=== PATIENT | male | born 1985 | race Caucasian/White ===

== ENCOUNTER 2024-06-14 12:00 | Emergency (ER) | payer SELFPAY ==
[2024-06-14 12:04] VITALS: BP 135/73; PULSE 71; RESP 20; TEMP 36.3; O2SAT 97; BMI 30.3
--- NOTE | 2024-06-14 14:48 | W.ED.HA ---
HPI - Headache General: Chief Complaint: Headache Stated Complaint: Migraine Time Seen by Provider: 06/14/24 14:34 History of Present Illness: 39-year-old male patient comes in today with headache. Patient has history of cluster headaches. Patient reports headache started last night and they had tried a dose of verapamil and canned oxygen. Patient reports that the oxygen was not effective or the verapamil. Patient usually states the headache just goes away on its own but he has had increasing pain and discomfort which prompted him to come to the ER. Erythema is noted to the left eye with drainage. Patient appears in moderate to severe pain. Related Data Allergies Allergy/AdvReac Type Severity Reaction Status Date / Time meperidine [From Demerol] Allergy Unconscious Verified 06/14/24 12:09 Review of Systems General: Reports: 10 or more systems reviewed and unremarkable except in HPI and below Neuro: Reports: headache(s) Physical Exam Const: COMMON NORMALS: alert HENMT: COMMON NORMALS: normocephalic HEAD & SCALP: normocephalic Neck/C-Spine: COMMON NORMALS: full ROM Resp: COMMON NORMALS: normal respiratory effort and clear to auscultation bilaterally AUSCULTATION: clear to auscultation bilaterally Cardio: COMMON NORMALS: regular rate RATE: regular rate GI: COMMON NORMALS: Soft to palpation and non-tender PALPATION: Yes Soft to palpation Back/Pelvis: COMMON NORMALS: thoracic and lumbar spine normal to inspection Extremity: COMMON NORMALS: full ROM Neuro: SENSORIUM/ORIENTATION: Yes alert Skin: COMMON NORMALS: turgor normal GENERAL SKIN EXAM: turgor normal Course Vital Signs: Vital signs: Vital Signs Temperature 97.4 F L 06/14/24 12:04 Pulse Rate 75 06/14/24 15:12 Respiratory Rate 20 H 06/14/24 12:04 Blood Pressure 129/74 06/14/24 15:12 Pulse Oximetry 96 06/14/24 15:12 Oxygen Delivery Me thod Room Air 06/14/24 15:12 Oxygen Flow Rate 15 06/14/24 14:51 MDM - Headache Medical Decision Making 39-year-old male patient comes in with headache since last night. On exam patient appears in moderate to severe pain. Patient does have some erythema to the left eye with some nasal drainage. Differential diagnosis includes migraine headache, classic headache, rhinosinusitis, cluster headache. Patient was treated with 100% oxygen x 15 minutes with minimal relief. Patient was then given DHE and 5 mg Compazine. At the 30-minute shala after medication given patient reported relief of headache and felt well to go home without further medicine. Patient was discharged home. No radiology studies performed this visit Discharge Plan Discharge Condition: Stable Coding Level of Care Code ED [employer] for Suzy Bergman
--- NOTE | 2024-06-14 14:50 | PC.NURSE ---
non-rebreather applied to pt on 15L oxygen @1445
[2024-06-14 14:51] VITALS: O2SAT 100
[2024-06-14] MEDS: dihydroergotamine 1 mg/mL Inj IVP (15:06)
[2024-06-14 15:12] VITALS: BP 129/74; PULSE 75; O2SAT 96
[2024-06-14] MEDS: prochlorperazine 10 mg/2 mL Inj 5 MG IVP (15:13)
[2024-06-14 15:51] VITALS: BP 144/87; PULSE 68; O2SAT 98
== END 2024-06-14 15:53 | disposition home or self-care (01) ==
PROVIDERS: Emergency Provider Nurse Practitioner Family
DX: R51.9 Headache, unspecified (principal)
CPT/HCPCS: 96374; 96375; 99284; J0780; J1110